=== PATIENT | female | born 1980 ===

== ENCOUNTER 2021-08-28 15:13 | Emergency (ER) | payer OTHER, SELFPAY ==
--- NOTE | 2021-08-28 | ECG_ITS ---
Test Reason : NEAR SYNCOPE Blood Pressure : / mmHG Vent. Rate : 145 BPM Atrial Rate : 145 BPM P-R Int : 140 ms QRS Dur : 080 ms QT Int : 254 ms P-R-T Axes : 030 -17 103 degrees QTc Int : 394 ms Sinus tachycardia Left ventricular hypertrophy with repolarization abnormality ( R in aVL , Galt product ) Abnormal ECG When compared with ECG of 01-MAR-2018 09:25, Vent. rate has increased BY [address] now depressed in Lateral leads T wave inversion now evident in Lateral leads Referred By: Generic ED Physician Electronically Signed By:Jules Lawrence
--- NOTE | ~2021-08-28 | CT_ITS ---
EXAMINATION: CT HEAD WITHOUT CONTRAST CLINICAL INFORMATION: Trauma. COMPARISON: None. TECHNIQUE: Contiguous axial imaging was performed from the skull base to vertex without intravenous administration of contrast. Coronal and sagittal reformatted images are performed at the CT scanner. [This CT examination was performed using dose optimization techniques as appropriate, variously including the following: *Automated exposure control *Adjustment of mA and/or kV according to patient size (this includes techniques or standardized protocols for targeted exams where dose is matched to indication/reason for exam; i.e. extremities or head) *Use of iterative reconstruction technique] DLP: 862 mGy-cm. FINDINGS: There is no evidence of acute intracranial hemorrhage or territorial infarction. No abnormal mass-effect or midline shift is seen. [place] to white matter differentiation is well preserved. No extra-axial fluid collections are identified. The ventricles are normal in size. There is no abnormal attenuation within the brain parenchyma. There is no osseous abnormality. The mastoid air cells and visualized portions of the paranasal sinuses are well-aerated. CT/CT head/brain wo con IMPRESSION: No acute intracranial pathology.
--- NOTE | ~2021-08-28 | XR_ITS ---
EXAMINATION: XR CHEST CLINICAL INFORMATION: Chest pain. COMPARISON: None TECHNIQUE: Portable AP upright view of the chest was obtained. FINDINGS: No significant abnormality is noted involving the heart, lungs, mediastinum, bony thorax or soft tissues. XR/XR chest 1V IMPRESSION: Unremarkable examination.
--- NOTE | 2021-08-28 15:33 | ECG_ITS ---
Test Reason : REPEAT Blood Pressure : / mmHG Vent. Rate : 112 BPM Atrial Rate : 112 BPM P-R Int : 142 ms QRS Dur : 086 ms QT Int : 338 ms P-R-T Axes : 041 -16 029 degrees QTc Int : 461 ms Sinus tachycardia Moderate voltage criteria for LVH, may be normal variant ( R in aVL , Jung product ) Borderline ECG When compared with ECG of 28-AUG-2021 15:32, T wave inversion no longer evident in Lateral leads Referred By: Cheng Crespo Electronically Signed By:Jules Lawrence
[2021-08-28 15:45] VITALS: BP 162/92; PULSE 150
[2021-08-28] MEDS: Metoprolol Tartrate 5 MG/5 ML VIAL IVPUSH (15:45)
--- NOTE | 2021-08-28 15:47 | ED.HEATRA ---
HPI - Head Injury General Chief complaint: Chest Pain Stated complaint: FAST HEART RATE Time Seen by Provider: 08/28/21 15:33 Source: patient and EMS Mode of arrival: EMS Limitations: no limitations History of Present Illness HPI Narrative: This is a 40 years old the female who presented by ambulance after a fall in the shower she states that she slipped hit head on the floor she arrived this was tachycardic with a heart rate of 145 , denies any shortness of breath, denies any fever MD Complaint: head injury Onset (ago): hour(s) (1) Place: home Loss of Consciousness: no Location of injury: frontal Severity: moderate Radiation: none Related Data Allergies Allergy/AdvReac Type Severity Reaction Status Date / Time No Known Allergies Allergy Unverified 05/18/20 14:59 Review of Systems Constitutional: Constitutional: Reports no additional constitutional complaints Eyes: Eyes: Reports no additional eye complaints ENT: Reports system reviewed and no additional complaints, except as documented Cardiovascular: Cardiovascular: Reports no additional cardiovascular complaints Musculoskeletal: Musculoskeletal: Reports no additional musculoskeletal complaints Neurologic: Reports system reviewed and no additional complaints, except as documented [facility] Past Medical History [facility] Narrative: Opioid Abuse Disorder Social History Social History Advance Directives: No Advance Directives Information Provided: Yes Physical Exam Vital Signs: Vital Signs: Last Vital Signs Pulse 94 08/28/21 19:45 Resp 18 08/28/21 19:43 BP 146/86 H 08/28/21 19:43 Pulse Ox 95 08/28/21 19:43 Oxygen Flow Rate 3 08/28/21 16:01 BMI result Body Mass Index 27.4 Const: General: cooperative, comfortable, no acute distress and intoxicated appearing Orientation/consciousness: oriented to person, oriented to place, oriented to time and patient oriented x3 HENMT: Head: Yes normal to inspection Ears: hearing grossly normal bilaterally Neuro: General: oriented to person, oriented to place, oriented to time and patient oriented x3 Course Reevaluation(s) Reevaluation #1: At this time the patient is feeling much better she wants to go home , initial tachycardia is completely resolved, labs imaging reviewed she has elevated LFT, I discussed this with the patient she tells me that she is alcoholic she is trying to cut back on the drinking , she is no ready to go to detox today as well ,she would like to be discharged home,at the time of discharge heart rate 94 MDM - Head Injury Lab Data Result diagrams: 08/28/21 15:51 08/28/21 15:51 Labs: Lab Results 08/28/21 08/28/21 08/28/21 Range/Units 15:38 15:51 15:51 WBC 10.0 (4.8-10.8) X10*3/uL RBC 4.53 (4.20-5.50) X10*6/uL Hgb 14.7 (12.0-16.0) g/dl Hct 43.6 (37.0-47.0) % MCV 96.2 (80.0-98.0) fL MCH 32.5 (27.0-33.0) pg MCHC 33.7 (31.0-35.0) g/dl RDW 13.2 (11.0-16.0) % Plt Count 209 (160-400) X10*3/uL MPV 9.3 L (9.4-12.3) fL Immature Gran % (Auto) 0.3 (0.0-0.4) % Neut % (Auto) 73.2 H (45-73) % Lymph % (Auto) 18.9 L (20-40) % [place] % (Auto) 6.7 (2-11) % Eos % (Auto) 0.6 (0-4) % Baso % (Auto) 0.3 (0-2) % Lymph # (Auto) 1.9 (1.2-4.9) X10*3/uL [place] # (Auto) 0.7 (0.1-1.2) X10*3/uL Eos # (Auto) 0.1 (0.0-0.4) X10*3/uL Baso # (Auto) 0.0 (0.0-0.2) X10*3/uL Abs Immat Gran (auto) 0.03 (0.00-0.03) X10*3/uL Absolute Neuts (auto) 7.3 (2.0-8.3) x10*3/uL Absolute Nucleated RBC 0.000 (0.0-0.012) X10*3/uL Nucleated RBC % (auto) 0.0 (0.0-0.2) /100WBC PT 11.3 (9.9-13.0) SEC INR 1.0 (0.9-1.1) Sodium (135-145) mmol/L Potassium (3.3-5.1) mmol/L Chloride (96-108) mmol/L Carbon Dioxide (22-29) mmol/L Anion Gap (12-20) BUN (9-16) mg/dL Creatinine (0.5-1.4) mg/dL Estim Creat Clear Calc Estimated GFR POC Glucose 126 H (60-115) mg/dL Random Glucose (60-115) mg/dL Calcium (8.4-10.2) mg/dL Total Bilirubin (0.0-1.0) mg/dL AST (5-31) U/L ALT (0-31) U/L Alkaline Phosphatase (39-117) U/L Troponin I High Sens (<3.5-17.0) ng/L Total Protein (6.5-8.0) g/dL Albumin (3.5-5.0) g/dL 08/28/21 08/28/21 Range/Units 15:51 15:51 WBC (4.8-10.8) X10*3/uL RBC (4.20-5.50) X10*6/uL Hgb (12.0-16.0) g/dl Hct (37.0-47.0) % MCV (80.0-98.0) fL MCH (27.0-33.0) pg MCHC (31.0-35.0) g/dl RDW (11.0-16.0) % Plt Count (160-400) X10*3/uL MPV (9.4-12.3) fL Immature Gran % (Auto) (0.0-0.4) % Neut % (Auto) (45-73) % Lymph % (Auto) (20-40) % [place] % (Auto) (2-11) % Eos % (Auto) (0-4) % Baso % (Auto) (0-2) % Lymph # (Auto) (1.2-4.9) X10*3/uL [place] # (Auto) (0.1-1.2) X10*3/uL Eos # (Auto) (0.0-0.4) X10*3/uL Baso # (Auto) (0.0-0.2) X10*3/uL Abs Immat Gran (auto) (0.00-0.03) X10*3/uL Absolute Neuts (auto) (2.0-8.3) x10*3/uL Absolute Nucleated RBC (0.0-0.012) X10*3/uL Nucleated RBC % (auto) (0.0-0.2) /100WBC PT (9.9-13.0) SEC INR (0.9-1.1) Sodium 144 (135-145) mmol/L Potassium 3.6 (3.3-5.1) mmol/L Chloride 106 (96-108) mmol/L Carbon Dioxide 26 (22-29) mmol/L Anion Gap 16 (12-20) BUN 15 (9-16) mg/dL Creatinine 1.19 (0.5-1.4) mg/dL Estim Creat Clear Calc 65.2 Estimated GFR 50 POC Glucose (60-115) mg/dL Random Glucose 115 (60-115) mg/dL Calcium 9.4 (8.4-10.2) mg/dL Total Bilirubin 0.9 (0.0-1.0) mg/dL AST 371 H (5-31) U/L ALT 142 H (0-31) U/L Alkaline Phosphatase 176 H (39-117) U/L Troponin I High Sens 4.6 (<3.5-17.0) ng/L Total Protein 8.2 H (6.5-8.0) g/dL Albumin 4.2 (3.5-5.0) g/dL Imaging Data Chest x-ray: Radiologist's impression: [address] [address] XRay Report Signed Patient: Allison Wakefield MR#: [id number] : 1980 Acct:[id number] Age/Sex: 40 / F ADM Date: 08/28/21 Loc: .ED Attending Dr: Ordering Physician: Cheng Crespo MD Date of Service: 08/28/21 Procedure(s): XR chest 1V Accession Number(s): [id number] cc: Cheng Crespo MD~ EXAMINATION: XR CHEST CLINICAL INFORMATION: Chest pain. COMPARISON: None TECHNIQUE: Portable AP upright view of the chest was obtained. FINDINGS: No significant abnormality is noted involving the heart, lungs, mediastinum, bony thorax or soft tissues. XR/XR chest 1V IMPRESSION: Unremarkable examination. ? CT scan - head: Radiologist's impression: base to vertex without intravenous administration of contrast. Coronal and sagittal reformatted images are performed at the CT scanner. [This CT examination was performed using dose optimization techniques as appropriate, variously including the following: *Automated exposure control *Adjustment of mA and/or kV according to patient size (this includes techniques or standardized protocols for targeted exams where dose is matched to indication/reason for exam; i.e. extremities or head) *Use of iterative reconstruction technique] DLP: 862 mGy-cm. FINDINGS: There is no evidence of acute intracranial hemorrhage or territorial infarction. No abnormal mass-effect or midline shift is seen. [place] to white matter differentiation is well preserved. No extra-axial fluid collections are identified. The ventricles are normal in size. There is no abnormal attenuation within the brain parenchyma. There is no osseous abnormality. The mastoid air cells and visualized portions of the paranasal sinuses are well-aerated. ? ECG Data Pacemaker model: Sinus tach rate 145 no ischemic changes Discharge Plan Discharge Clinical Impression: Head injury, Elevated LFTs, Alcohol abuse Patient Disposition: Home, Self-Care Instructions: Head Injury (ED), Alcohol Use Disorder (ED) Additional Instructions: your Liver test are elevated return if worse, please consider detox
[2021-08-28 15:58] LABS: Glucose, Whole Blood 126 mg/dL (60-115)
[2021-08-28 16:01] VITALS: BP 162/92; BP 170/109; PULSE 140; PULSE 170; RESP 18; O2SAT 96; BMI 27.4
[2021-08-28 16:06] LABS: MANUAL DIFF FLAG NO
[2021-08-28] MEDS: 0.9 % Sodium Chloride 1,000 ML 999 ML IVCONT (16:10)
[2021-08-28 16:16] LABS: Basophils Percent Auto 0.3 % (0-2); Eosinophils Absolute Auto 0.1 X10*3/uL (0.0-0.4); Eosinophils Percent Auto 0.6 % (0-4); Hematocrit 43.6 % (37.0-47.0); Hemoglobin 14.7 g/dl (12.0-16.0); Imm Gran Abs Auto 0.03 X10*3/uL (0.00-0.03); Imm Gran Pct Auto 0.3 % (0.0-0.4); Lymphocytes Absolute Auto 1.9 X10*3/uL (1.2-4.9); Lymphocytes Percent Auto 18.9 % (20-40); Mean Corpuscular HGB Conc 33.7 g/dl (31.0-35.0); Mean Corpuscular Hemoglobin 32.5 pg (27.0-33.0); Mean Corpuscular Volume 96.2 fL (80.0-98.0); Mean Platelet Volume 9.3 fL (9.4-12.3); Monocytes Absolute Auto 0.7 X10*3/uL (0.1-1.2); Monocytes Percent Auto 6.7 % (2-11); Neutrophils Absolute Auto 7.3 x10*3/uL (2.0-8.3); Neutrophils Percent Auto 73.2 % (45-73); Platelet Count 209 X10*3/uL (160-400); Prothrombin Time 11.3 SEC (9.9-13.0); Red Blood Count 4.53 X10*6/uL (4.20-5.50); Red Cell Distribution Width 13.2 % (11.0-16.0)
[2021-08-28 16:33] LABS: Troponin-I High Sensitivity 4.6 ng/L (<3.5-17.0)
[2021-08-28 16:38] LABS: Alanine Aminotransferase 142 U/L (0-31); Albumin Level 4.2 g/dL (3.5-5.0); Alkaline Phosphatase 176 U/L (39-117); Anion Gap 16 (12-20); Aspartate Amino Transferase 371 U/L (5-31); Bilirubin Total 0.9 mg/dL (0.0-1.0); Blood Urea Nitrogen 15 mg/dL (9-16); Calcium 9.4 mg/dL (8.4-10.2); Carbon Dioxide 26 mmol/L (22-29); Chloride 106 mmol/L (96-108); Creatinine Clr Calc Pharmacy 65.2; Estimated Glomerular Filt Rate 50; Glucose Random 115 mg/dL (60-115); Potassium 3.6 mmol/L (3.3-5.1); Sodium 144 mmol/L (135-145); Total Protein 8.2 g/dL (6.5-8.0)
[2021-08-28] MEDS: LORazepam 1 MG TABLET PO (19:05)
[2021-08-28 19:43] VITALS: BP 146/86; PULSE 116; RESP 18; O2SAT 95
[2021-08-28 19:45] VITALS: PULSE 94
== END 2021-08-28 20:11 | disposition home or self-care (01) ==
PROVIDERS: Emergency Provider Emergency Medicine; PCP Internal Medicine
DX: S09.90XA Unspecified injury of head, initial encounter (principal); R00.0 Tachycardia, unspecified; R79.89 Other specified abnormal findings of blood chemistry; F10.10 Alcohol abuse, uncomplicated; Z95.0 Presence of cardiac pacemaker; W18.2XXA Fall in (into) shower or empty bathtub, initial encounter; Y93.E1 Activity, personal bathing and showering; Y92.002 Bathroom of unspecified non-institutional (private) residence as the place of occurrence of the external cause; Y99.9 Unspecified external cause status
CPT/HCPCS: 36415; 70450; 71045; 80053; 82947; 84484; 85025; 85610; 93005; 96361; 96374; 99284

== ENCOUNTER 2021-09-08 16:12 | Inpatient (IN) | payer OTHER, SELFPAY ==
--- NOTE | ~2021-09-08 | XR_ITS ---
EXAMINATION: XR CHEST CLINICAL INFORMATION: Chest pain COMPARISON: Frontal view 08/28/21 TECHNIQUE: Upright frontal portable view of the chest was obtained. FINDINGS: Devices overlie the patient. The mediastinum, orestes, vasculature, lungs and visualized pleural margins are within normal limits. Suspect nipple jewelry on the left. Indistinctness adjacent to the cardiac apex likely a prominent fat pad. Limited spine detail XR/XR chest 1V IMPRESSION: No pneumonia or edema. No suspicious interval change.
--- NOTE | ~2021-09-08 | US_ITS ---
EXAMINATION: US ABDOMEN LIMITED CLINICAL INFORMATION: Abdominal pain with vomiting and elevated LFTs. COMPARISON: None TECHNIQUE: Real-time imaging of the right upper quadrant abdominal viscera. FINDINGS: PANCREAS: Normal. LIVER: Liver is enlarged measuring 21.3 cm in greatest length and demonstrates increased echogenicity suggesting hepatic steatosis. The liver contour is normal. No focal hepatic lesion. There is no intrahepatic biliary duct dilatation seen. GALLBLADDER: Normal. The gallbladder is physiologically distended without evidence of stones, sludge, polyps, wall thickening or pericholecystic fluid. COMMON BILE DUCT: Normal in caliber measuring 0.4 cm in diameter. RIGHT KIDNEY: Normal. No hydronephrosis. No renal calculi or focal parenchymal lesions. The kidney measures 10.2 cm in maximum dimension. FREE FLUID: None. US/US abdomen limited IMPRESSION: Enlarged fatty liver
--- NOTE | ~2021-09-08 | CT_ITS ---
EXAMINATION: CT HEAD WITHOUT CONTRAST CLINICAL INFORMATION: Trauma COMPARISON: 08.28.2021 TECHNIQUE: Contiguous axial imaging was performed from the skull base to vertex without intravenous administration of contrast. This CT examination was performed using dose optimization techniques as appropriate, variously including the following: *Automated exposure control *Adjustment of mA and/or kV according to patient size (this includes techniques or standardized protocols for targeted exams where dose is matched to indication/reason for exam; i.e. extremities or head) *Use of iterative reconstruction technique DLP: 816 mGy-cm FINDINGS: There is no evidence of acute intracranial hemorrhage or territorial infarction. No abnormal mass effect or midline shift is seen. Del Angel to white matter differentiation is well preserved. No extra-axial fluid collections are identified. The ventricles are normal in size. There is no abnormal attenuation within the brain parenchyma. The osseous structures and soft tissues are normal. The mastoid air cells and visualized portions of the paranasal sinuses are well aerated. CT/CT head/brain wo con IMPRESSION: No acute intracranial pathology.
[2021-09-08 16:19] VITALS: BP 179/98; PULSE 117; RESP 18; TEMP 36.7; O2SAT 98; BMI 28.1
[2021-09-08 17:01] LABS: COVID-19 Test Negative (Negative)
--- NOTE | 2021-09-08 20:50 | ECG_ITS ---
Test Reason : MED CLEARANCE Blood Pressure : / mmHG Vent. Rate : 088 BPM Atrial Rate : 088 BPM P-R Int : 134 ms QRS Dur : 082 ms QT Int : 392 ms P-R-T Axes : 066 005 023 degrees QTc Int : 474 ms Normal sinus rhythm Normal ECG When compared with ECG of 28-AUG-2021 16:07, No significant change was found Referred By: Tyrone High Electronically Signed By:XIMENA MEZA
--- NOTE | 2021-09-08 20:54 | ED_ITS ---
HPI - General Adult General Chief complaint: General Medical Stated complaint: Sob,vomiting and chest pain Time Seen by Provider: 09/08/21 16:34 Source: patient Mode of arrival: ambulatory Limitations: no limitations History of Present Illness HPI narrative: 40-year-old female history of alcohol use on a daily basis, patient presented nausea and vomiting for 3 days, patient has been bingeing on drinking alcohol for the past week, then started to have nausea and vomiting, patient did not drink since yesterday, feeling very shaky and sustaining tremors, patient also been having multiple falls, fell at home 3 days ago tripped on her cat striking her head on kitchen table. Otherwise patient declined any abdominal pain only when she is vomiting. Related Data Home Medications Medication Instructions Recorded Confirmed No Known Home Meds 09/08/21 09/08/21 Allergies Allergy/AdvReac Type Severity Reaction Status Date / Time No Known Allergies Allergy Unverified 05/18/20 14:59 Review of Systems Review of Systems: All other systems are reviewed and are negative Constitutional: Reports as per HPI and Reports no additional constitutional complaints Eyes: Reports as per HPI and Reports no additional eye complaints Reports system reviewed and no additional complaints, except as documented Cardiovascular: Reports as per HPI and Reports no additional cardiovascular complaints Respiratory: Reports as per HPI and Reports no additional respiratory complaints Gastrointestinal: Reports as per HPI and Reports no additional gastrointestinal complaints Genitourinary: Reports no additional female genitourinary complaints Musculoskeletal: Reports no additional musculoskeletal complaints Skin/Breast: Reports system reviewed and no additional complaints, except as docu Psychiatric: Reports no additional psychiatric complaints Endocrine: Reports no additional endocrine complaints Hematologic/Lymphatic: Reports no additional hematologic/lymphatic complaints Allergic/Immunologic: Reports no additional allergic/immunologic complaints Reports system reviewed and no additional complaints, except as documented and Reports Abnormal speech present [facility] Social History Social History Alcohol intake: current Alcohol intake frequency: 3 or more drinks per day Alcohol type: hard liquor Patient Tobacco Use Status: Current everyday Tobacco user Smoked in Last 30 Days: Yes Use of substances other than those prescribed or required for medical reasons: No Advance Directives: No Advance Directives Information Provided: No Patient : No Physical Exam Vital Signs: Vital Signs: Last Vital Signs Temp 98.8 F 09/08/21 22:14 Pulse 95 09/08/21 22:14 Resp 15 01/08/22 22:14 BP 163/83 H 09/08/21 22:14 Pulse Ox 95 09/08/21 22:14 BMI result Body Mass Index 28.1 Vital signs have been reviewed as appeared to be correct. Blood pressure is elevated. Heart rate elevated. Respiration rate normal. Temperature normal. Oxygen saturation normal. Appearance: Alert. Anxious, diffuse involuntary tremor Head: Normal external exam. Normocephalic. Atraumatic. No Silva signs noted. No raccoon eyes noted, with tongue fasciculation. Eyes: PERRLA. EOMI. Conjunctiva and sclera normal. Eyelids normal. ENT: TM's Normal. Pharynx normal. Uvula midline. Moist mucous membranes. No trismus noted. No drooling noted. No muffled voice noted. Neck: Normal inspection. Neck supple. FROM. No adenopathy. Thyroid Normal. No meningeal signs. No neck mass noted. CVS: Normal heart rate and rhythm. Heart sound normal. No murmurs noted. Pulses normal throughout. Respiratory: No respiratory distress. Painless inspiration. Breath sounds normal. No wheezes/rales/rhonchi noted. Chest nontender. No accessory muscle usage noted or decreased air movement noted. Abdomen: Soft and nontender. Bowel sounds normal in all 4 quadrants. No distention noted. No organomegaly noted. No visible injury noted. Back: No CVA tenderness. Full range of motion noted. Skin: Skin warm and dry. Normal skin color. Normal skin turgor. No rashes/lesions/lacerations noted. Extremities: No lower extremity edema. Extremities exhibit normal range of motion. Extremities nontender. Neuro: Oriented X 3. Cranial nerve exam: II-XII are grossly intact No motor deficit. No sensory deficit. Reflexes normal. Course Course Course Narrative: Assessment and plan. 1. 40-year-old female alcohol abuser, patient did not drink alcohol for the past 3 days due to nausea and vomiting, presented with severe withdrawal symptoms patient required phenobarb/Ativan to control the symptoms. 2. Multiple fall with head injury head a negative head CT for intracranial bleed. 3. Patient with chronic elevation of LFTs likely secondary to chronic alcohol abuse ultrasound revealing fatty liver. Medical Decision Making Lab Data Lab results reviewed: Yes I reviewed the patient's lab results. Result diagrams: 09/08/21 21:15 09/08/21 21:15 Labs: Lab Results 09/08/21 09/08/21 09/08/21 Range/Units 16:24 21:15 21:15 WBC 7.1 (4.8-10.8) X10*3/uL RBC 4.36 (4.20-5.50) X10*6/uL Hgb 14.0 (12.0-16.0) g/dl Hct 41.0 (37.0-47.0) % MCV 94.0 (80.0-98.0) fL MCH 32.1 (27.0-33.0) pg MCHC 34.1 (31.0-35.0) g/dl RDW 13.0 (11.0-16.0) % Plt Count 144 L D (160-400) X10*3/uL MPV 9.5 (9.4-12.3) fL Immature Gran % (Auto) 0.4 (0.0-0.4) % Neut % (Auto) 75.6 H (45-73) % Lymph % (Auto) 14.8 L (20-40) % [place] % (Auto) 9.1 (2-11) % Eos % (Auto) 0.0 (0-4) % Baso % (Auto) 0.1 (0-2) % Lymph # (Auto) 1.1 L (1.2-4.9) X10*3/uL [place] # (Auto) 0.7 (0.1-1.2) X10*3/uL Eos # (Auto) 0.0 (0.0-0.4) X10*3/uL Baso # (Auto) 0.0 (0.0-0.2) X10*3/uL Abs Immat Gran (auto) 0.03 (0.00-0.03) X10*3/uL Absolute Neuts (auto) 5.4 (2.0-8.3) x10*3/uL Absolute Nucleated RBC 0.000 (0.0-0.012) X10*3/uL Nucleated RBC % (auto) 0.0 (0.0-0.2) /100WBC Sodium 140 (135-145) mmol/L Potassium 3.6 (3.3-5.1) mmol/L Chloride 98 (96-108) mmol/L Carbon Dioxide 27 (22-29) mmol/L Anion Gap 19 (12-20) BUN 7 L D (9-16) mg/dL Creatinine 1.00 (0.5-1.4) mg/dL Estim Creat Clear Calc 81.3 Estimated GFR > 60 Random Glucose 69 (60-115) mg/dL Calcium 9.8 (8.4-10.2) mg/dL Magnesium 1.8 (1.6-2.6) mg/dL Total Bilirubin 3.4 H (0.0-1.0) mg/dL Direct Bilirubin 2.6 H (0.0-0.5) mg/dL AST 478 H (5-31) U/L ALT 181 H (0-31) U/L Alkaline Phosphatase 205 H (39-117) U/L Troponin I High Sens (<3.5-17.0) ng/L B-Natriuretic Peptide (<100) pg/mL Total Protein 8.5 H (6.5-8.0) g/dL Albumin 4.5 (3.5-5.0) g/dL Lipase 75 (8-78) U/L Beta HCG, Quant < 2 mIU/mL Ethyl Alcohol mg/dL COVID-19 ([facility]) Negative (Negative) COVID-19 Clin Com See Note 09/08/21 09/08/21 Range/Units 21:15 21:15 WBC (4.8-10.8) X10*3/uL RBC (4.20-5.50) X10*6/uL Hgb (12.0-16.0) g/dl Hct (37.0-47.0) % MCV (80.0-98.0) fL MCH (27.0-33.0) pg MCHC (31.0-35.0) g/dl RDW (11.0-16.0) % Plt Count (160-400) X10*3/uL MPV (9.4-12.3) fL Immature Gran % (Auto) (0.0-0.4) % Neut % (Auto) (45-73) % Lymph % (Auto) (20-40) % [place] % (Auto) (2-11) % Eos % (Auto) (0-4) % Baso % (Auto) (0-2) % Lymph # (Auto) (1.2-4.9) X10*3/uL [place] # (Auto) (0.1-1.2) X10*3/uL Eos # (Auto) (0.0-0.4) X10*3/uL Baso # (Auto) (0.0-0.2) X10*3/uL Abs Immat Gran (auto) (0.00-0.03) X10*3/uL Absolute Neuts (auto) (2.0-8.3) x10*3/uL Absolute Nucleated RBC (0.0-0.012) X10*3/uL Nucleated RBC % (auto) (0.0-0.2) /100WBC Sodium (135-145) mmol/L Potassium (3.3-5.1) mmol/L Chloride (96-108) mmol/L Carbon Dioxide (22-29) mmol/L Anion Gap (12-20) BUN (9-16) mg/dL Creatinine (0.5-1.4) mg/dL Estim Creat Clear Calc Estimated GFR Random Glucose (60-115) mg/dL Calcium (8.4-10.2) mg/dL Magnesium (1.6-2.6) mg/dL Total Bilirubin (0.0-1.0) mg/dL Direct Bilirubin (0.0-0.5) mg/dL AST (5-31) U/L ALT (0-31) U/L Alkaline Phosphatase (39-117) U/L Troponin I High Sens 8.5 D (<3.5-17.0) ng/L B-Natriuretic Peptide 42 (<100) pg/mL Total Protein (6.5-8.0) g/dL Albumin (3.5-5.0) g/dL Lipase (8-78) U/L Beta HCG, Quant mIU/mL Ethyl Alcohol 28 mg/dL COVID-19 ([facility]) (Negative) COVID-19 Clin Com Imaging Data Head CT: Attestation: I personally reviewed and interpreted this imaging study as follows: Radiologist's impression: No acute intracranial pathology. Chest x-ray: Attestation: I personally reviewed and interpreted this imaging study as follows: Radiologist's impression: No pneumonia or edema. No suspicious interval change. Discharge Plan Discharge Clinical Impression: Closed head injury, Alcohol withdrawal Patient Disposition: Admitted As Inpatient Prescriptions: No Action No Known Home Meds RF: 0
[2021-09-08 20:56] VITALS: BP 171/97; PULSE 108; RESP 16; O2SAT 99
[2021-09-08 21:19] LABS: MANUAL DIFF FLAG NO
[2021-09-08 21:24] LABS: Basophils Percent Auto 0.1 % (0-2); Imm Gran Abs Auto 0.03 X10*3/uL (0.00-0.03); Imm Gran Pct Auto 0.4 % (0.0-0.4); Lymphocytes Absolute Auto 1.1 X10*3/uL (1.2-4.9); Lymphocytes Percent Auto 14.8 % (20-40); Mean Corpuscular HGB Conc 34.1 g/dl (31.0-35.0); Mean Corpuscular Hemoglobin 32.1 pg (27.0-33.0); Mean Platelet Volume 9.5 fL (9.4-12.3); Monocytes Absolute Auto 0.7 X10*3/uL (0.1-1.2); Monocytes Percent Auto 9.1 % (2-11); Neutrophils Absolute Auto 5.4 x10*3/uL (2.0-8.3); Neutrophils Percent Auto 75.6 % (45-73); Platelet Count 144 X10*3/uL (160-400); Red Blood Count 4.36 X10*6/uL (4.20-5.50); White Blood Count 7.1 X10*3/uL (4.8-10.8)
[2021-09-08 21:34] LABS: Ethanol 28 mg/dL
[2021-09-08] MEDS: ondansetron HCL 4 MG/2 ML VIAL IVPUSH (21:34)
[2021-09-08] MEDS: 0.9 % Sodium Chloride 1,000 ML 999 ML IV (21:34)
[2021-09-08] MEDS: PHENobarbitaL sodium 130 MG/ML VIAL 247 MG IM (21:35)
[2021-09-08] MEDS: Famotidine/PF 20 MG/2 ML VIAL IVPUSH (21:35)
[2021-09-08] MEDS: LORazepam 2 MG/ML VIAL 1 MG IVPUSH (21:35)
[2021-09-08 21:43] LABS: B Type Natriuretic Peptide 42 pg/mL (<100); Troponin-I High Sensitivity 8.5 ng/L (<3.5-17.0)
[2021-09-08 21:44] LABS: Alanine Aminotransferase 181 U/L (0-31); Albumin Level 4.5 g/dL (3.5-5.0); Alkaline Phosphatase 205 U/L (39-117); Anion Gap 19 (12-20); Aspartate Amino Transferase 478 U/L (5-31); Bilirubin Direct 2.6 mg/dL (0.0-0.5); Bilirubin Total 3.4 mg/dL (0.0-1.0); Blood Urea Nitrogen 7 mg/dL (9-16); Calcium 9.8 mg/dL (8.4-10.2); Carbon Dioxide 27 mmol/L (22-29); Chloride 98 mmol/L (96-108); Creatinine Clr Calc Pharmacy 81.3; Estimated Glomerular Filt Rate > 60; Glucose Random 69 mg/dL (60-115); Lipase 75 U/L (8-78); Magnesium 1.8 mg/dL (1.6-2.6); Potassium 3.6 mmol/L (3.3-5.1); Sodium 140 mmol/L (135-145); Total Protein 8.5 g/dL (6.5-8.0)
[2021-09-08 22:14] VITALS: BP 163/83; PULSE 95; RESP 15; TEMP 37.1; O2SAT 95
[2021-09-08 22:53] LABS: HCG Quantitative < 2 mIU/mL
--- NOTE | 2021-09-08 23:59 | P.HPHOSP_ITS ---
History of Present Illness Date of Service: 09/08/21 Chief Complaint: nausea/vomiting 40-year-old female with a past medical history of alcohol abuse, opiate abuse on methadone presented to the hospital with a chief complaint of nausea vomiting and abdominal discomfort for the past few days. Patient reports that over the past 2 days she has been having nausea and vomiting associated abdominal discomfort; denies any blood in the vomitus. Denies any diarrhea. Patient reports that she has decreased oral intake. Mentions she drinks alcohol regularly; last drink was yesterday; denies any seizure-like activity. Denies any chest pain palpitations lightheadedness or dizziness. Patient reports that today she felt unsteady and fell on the ground, hit her head; denies any blurry visions, neck pain back pain or hip pain. Denies any numbness tingling or focal weakness. Review of all other systems is negative except mentioned above ER course: Per ER team patient CT head showed no acute findings; patient noted to be dry and of withdrawing from alcohol; started on phenobarb protocol. Admitted to the hospital for further management. PMFSH Pertinent family history: Reviewed Social History Alcohol intake: current Alcohol intake frequency: 3 or more drinks per day Alcohol type: hard liquor Patient Tobacco Use Status: Current everyday Tobacco user Smoked in Last 30 Days: Yes Use of substances other than those prescribed or required for medical reasons: No Advance Directives: No Advance Directives Information Provided: No Patient : No Meds Allergies Allergy/AdvReac Type Severity Reaction Status Date / Time No Known Allergies Allergy Unverified 05/18/20 14:59 Active Medications: Current Medications Medication (No Benzodiazepines) 1 each MISCELLANE DAILY EARL Phenobarbital (Phenobarbital 15 Mg Tablet) 45 mg PO BID EARL; Protocol Stop: 09/10/21 21:01 Phenobarbital (Phenobarbital 30 Mg Tablet) 30 mg PO BID EARL; Protocol Stop: 09/12/21 21:01 Phenobarbital (Phenobarbital 15 Mg Tablet) 15 mg PO DAILY EARL; Protocol Stop: 09/14/21 09:01 Phenobarbital Sodium (Phenobarbital Sodium 130 Mg/Ml Vial) 183.3 mg IM Q3H EARL; Protocol Stop: 09/09/21 04:01 Home Medications Medication Instructions Recorded Confirmed Last Taken Type No Known Home Meds 09/08/21 09/08/21 Unknown History Physical Exam Vital Signs and Narrative: Vital Signs: Last Vital Signs Temp 98.8 F 09/08/21 22:14 Pulse 95 09/08/21 22:14 Resp 15 09/08/21 22:14 BP 163/83 H 09/08/21 22:14 Pulse Ox 95 09/08/21 22:14 BMI result Body Mass Index 28.1 Gen: Appears be in no acute distress HEENT: NCAT, dry mucosa. Pulmonary: Vesicular breath sounds, fair air entry CVS: Normal S1-S2 Abdomen: BS+, Soft, Nontender Extremities: Warm well perfused Neuro: Alert and awake. Results Labs CBC and Chem 7: 09/08/21 21:15 09/08/21 21:15 Labs: Laboratory Results - last 24 hr 09/08/21 09/08/21 09/08/21 16:24 21:15 21:15 MCV 94.0 MCH 32.1 MCHC 34.1 RDW 13.0 Plt Count 144 L D MPV 9.5 Immature Gran % (Auto) 0.4 Neut % (Auto) 75.6 H Lymph % (Auto) 14.8 L [place] % (Auto) 9.1 Eos % (Auto) 0.0 Baso % (Auto) 0.1 Lymph # (Auto) 1.1 L [place] # (Auto) 0.7 Eos # (Auto) 0.0 Baso # (Auto) 0.0 Abs Immat Gran (auto) 0.03 Absolute Neuts (auto) 5.4 Absolute Nucleated RBC 0.000 Nucleated RBC % (auto) 0.0 Anion Gap 19 Estim Creat Clear Calc 81.3 Estimated GFR > 60 Random Glucose 69 Calcium 9.8 Magnesium 1.8 Total Bilirubin 3.4 H Direct Bilirubin 2.6 H AST 478 H ALT 181 H Alkaline Phosphatase 205 H Troponin I High Sens B-Natriuretic Peptide Total Protein 8.5 H Albumin 4.5 Lipase 75 Beta HCG, Quant < 2 Ethyl Alcohol COVID-19 (LAURO) Negative COVID-19 Clin Com See Note 09/08/21 09/08/21 21:15 21:15 MCV MCH MCHC RDW Plt Count MPV Immature Gran % (Auto) Neut % (Auto) Lymph % (Auto) [place] % (Auto) Eos % (Auto) Baso % (Auto) Lymph # (Auto) [place] # (Auto) Eos # (Auto) Baso # (Auto) Abs Immat Gran (auto) Absolute Neuts (auto) Absolute Nucleated RBC Nucleated RBC % (auto) Anion Gap Estim Creat Clear Calc Estimated GFR Random Glucose Calcium Magnesium Total Bilirubin Direct Bilirubin AST ALT Alkaline Phosphatase Troponin I High Sens 8.5 D B-Natriuretic Peptide 42 Total Protein Albumin Lipase Beta HCG, Quant Ethyl Alcohol 28 COVID-19 (LAURO) COVID-19 Clin Com Imaging Radiologist's Impressions: Impressions Abdomen Ultrasound 09/08/21 10:47 IMPRESSION: Enlarged fatty liver Chest X-Ray 09/08/21 20:51 IMPRESSION: No pneumonia or edema. No suspicious interval change. Head CT 09/08/21 22:16 IMPRESSION: No acute intracranial pathology. Assessment and Plan (1) Alcohol withdrawal: Status: Acute (2) Transaminitis: Status: Acute 40-year-old female with a past medical history of alcohol abuse, opiate abuse on methadone presented to the hospital with a chief complaint of nausea vomiting and abdominal discomfort for the past few days/fall. Admitted for following. Nausea/vomiting: Likely alcoholic gastritis. IV Pepcid. Lipase within normal limits Advanced diet as tolerated. Alcohol abuse/withdrawal: Patient is started on phenobarb protocol. Continue thiamine folate and multivitamins. Transaminitis: Likely in setting of alcohol abuse. Monitor liver enzymes. Prior abdominal ultrasound showed fatty liver. UTI: c/w ceftriaxone. f/u Cultures Fall: Mechanical in nature. Denies any numbness tingling or focal weakness. Telemetry. Concern for LOC/concussion. Patient's memory is currently intact. DVT ppx: SCD Full code Quality Stroke Does the patient have a stroke diagnosis?: No VTE Prior VTE?: No VTE Risk Level:: Medical - low VTE Device Contraindication: N/A - Device Ordered VTE Drug Contraindication: Treatment Not Indicated
--- NOTE | 2021-09-09 | ECG_ITS ---
Test Reason : chest pain Blood Pressure : / mmHG Vent. Rate : 103 BPM Atrial Rate : 103 BPM P-R Int : 188 ms QRS Dur : 082 ms QT Int : 354 ms P-R-T Axes : 046 -05 020 degrees QTc Int : 463 ms Sinus tachycardia Otherwise normal ECG Referred By: Tyrone High Electronically Signed By:JESUS GONZALEZ MD
[2021-09-09] MEDS: Dextrose 5 % and 0.45 % NaCl 1,000 ML 50 ML IVCONT ×2 (00:54→23:04)
[2021-09-09] MEDS: PHENobarbitaL sodium 130 MG/ML VIAL 183.3 MG IM ×2 (00:54→04:28)
[2021-09-09 01:04] LABS: Appearance Urine CLOUDY; Color Urine DK YELLOW; Glucose Urine UA NEG (NEG); Leukocyte Esterase Urine 2+ (NEG); Nitrite Urine NEG (NEG); Specific Gravity - Urine >= 1.030 (1.005-1.025); UACC Culture Trigger YES; Urine Blood 3+ (NEG); Urine Ketones 40 MG/DL (NEG); Urine Protein 1+ MG/DL (NEG-TRACE)
[2021-09-09 01:11] LABS: Bacteria Urine 4+ /LPF; Squamous Epithelial Cell Urine 4+ /LPF; Trichomonas Urine NOTED; WBC Urine 30-49 /HPF (0-4)
[2021-09-09] MEDS: cefTRIAXone sodium 1 GM in 0.9 % Sodium Chloride 50 ML IV ×2 (03:33→21:56)
[2021-09-09 04:29] VITALS: BP 161/77; PULSE 87; RESP 18; O2SAT 95
--- NOTE | 2021-09-09 04:32 | PC.NURSE ---
pt ciwa is at 0. pt has very mild tremors, pt is calm and cooperative, skin pnk warm and dry, no visual or auditory hallucinations. pt repositions self and follows commands.
[2021-09-09 06:45] LABS: MANUAL DIFF FLAG NO
[2021-09-09 06:57] LABS: Basophils Percent Auto 0.5 % (0-2); Eosinophils Percent Auto 0.2 % (0-4); Hematocrit 35.6 % (37.0-47.0); Hemoglobin 11.9 g/dl (12.0-16.0); Imm Gran Abs Auto 0.03 X10*3/uL (0.00-0.03); Imm Gran Pct Auto 0.5 % (0.0-0.4); Lymphocytes Absolute Auto 1.3 X10*3/uL (1.2-4.9); Lymphocytes Percent Auto 21.5 % (20-40); Mean Corpuscular HGB Conc 33.4 g/dl (31.0-35.0); Mean Corpuscular Hemoglobin 31.9 pg (27.0-33.0); Mean Corpuscular Volume 95.4 fL (80.0-98.0); Mean Platelet Volume 9.8 fL (9.4-12.3); Monocytes Absolute Auto 0.5 X10*3/uL (0.1-1.2); Monocytes Percent Auto 7.9 % (2-11); Neutrophils Absolute Auto 4.3 x10*3/uL (2.0-8.3); Neutrophils Percent Auto 69.4 % (45-73); Platelet Count 118 X10*3/uL (160-400); Red Blood Count 3.73 X10*6/uL (4.20-5.50); White Blood Count 6.2 X10*3/uL (4.8-10.8)
[2021-09-09 07:22] LABS: Anion Gap 12 (12-20); Blood Urea Nitrogen 8 mg/dL (9-16); Calcium 8.8 mg/dL (8.4-10.2); Carbon Dioxide 29 mmol/L (22-29); Chloride 101 mmol/L (96-108); Creatinine Clr Calc Pharmacy 84.7; Estimated Glomerular Filt Rate > 60; Glucose Random 79 mg/dL (60-115); Magnesium 1.8 mg/dL (1.6-2.6); Potassium 3.6 mmol/L (3.3-5.1); Sodium 138 mmol/L (135-145)
[2021-09-09 08:34] VITALS: BP 158/79; PULSE 83; RESP 16; O2SAT 95
[2021-09-09] MEDS: Thiamine HCL 100 MG TABLET PO (08:56)
[2021-09-09] MEDS: PHENobarbitaL 15 MG TABLET 45 MG PO ×2 (08:56→20:10)
[2021-09-09] MEDS: Multivitamin TABLET 1 TAB PO (08:56)
[2021-09-09] MEDS: Famotidine/PF 20 MG/2 ML VIAL IVPUSH ×2 (08:56→20:10)
[2021-09-09] MEDS: Folic Acid 1 MG TABLET PO (08:56)
--- NOTE | 2021-09-09 09:47 | PC.NURSE ---
contacted JULIO Pedro for verification of pts methadone from [facility]
--- NOTE | 2021-09-09 11:04 | HO.PM.IMPN ---
Subjective Subjective Date of Service: 09/09/21 Interval History: Admitted due to nausea vomiting and alcohol withdrawal patient shaky, anxious asking for methadone, keep repeating the history that she was trying to detox at home was nauseous, not eating , tripped and fell at home and hit her head on kitchen table, denies headache, no dizziness, eating breakfast Review of Systems Review of Systems: Yes all other systems are reviewed and are negative Physical Exam Vital Signs: Vital Signs: Last Vital Signs Temp 98.8 F 09/08/21 22:14 Pulse 83 09/09/21 08:34 Resp 16 09/09/21 08:34 BP 158/79 H 09/09/21 08:34 Pulse Ox 95 09/09/21 08:34 BMI result Body Mass Index 28.1 General awake alert anxious,no acute distress. Oral mucosa moist Neck supple no JVD. CVS regular rate rhythm, Respiratory lungs clear to auscultation, no respiratory distress, no wheeze, no rhonchi. Gastrointestinal abdomen soft, nontender, bowel sounds audible, Extremities no edema. Neuro shaky tremulous, moving all 4 extremities speech clear Skin no rash Back no CVA tenderness Objective Data Active Medications Famotidine (Famotidine/Pf 20 Mg/2 Ml Vial) 20 mg IVPUSH BID [facility] Last Admin: 09/09/21 08:56 Dose: 20 mg Documented by: SWAPNIL Folic Acid (Folic Acid 1 Mg Tablet) 1 mg PO DAILY [facility] Stop: 09/12/21 08:59 Last Admin: 09/09/21 08:56 Dose: 1 mg Documented by: SWAPNIL Dextrose/Sodium Chloride (D51/2ns) 1,000 mls @ 50 mls/hr IVCONT .Q20H [facility] Last Admin: 09/09/21 00:54 Dose: 50 mls/hr Documented by: DIEGO Ceftriaxone Sodium 1 gm/ (Sodium Chloride) 50 mls @ 100 mls/hr IV Q24H [facility] Medication (No Benzodiazepines) 1 each MISCELLANE DAILY [facility] Melatonin (Melatonin 3 Mg Tablet) 6 mg PO BEDTIME PRN PRN Reason: Insomnia Multivitamins/Vitamin C (Multivitamin Tablet) 1 tab PO DAILY [facility] Stop: 09/12/21 08:59 Last Admin: 09/09/21 08:56 Dose: 1 tab Documented by: SWAPNIL Phenobarbital (Phenobarbital 15 Mg Tablet) 45 mg PO BID [facility]; Protocol Stop: 09/10/21 21:01 Last Admin: 09/09/21 08:56 Dose: 45 mg Documented by: SWAPNIL Phenobarbital (Phenobarbital 30 Mg Tablet) 30 mg PO BID [facility]; Protocol Stop: 09/12/21 21:01 Phenobarbital (Phenobarbital 15 Mg Tablet) 15 mg PO DAILY [facility]; Protocol Stop: 09/14/21 09:01 Senna (Sennosides 8.6 Mg Tablet) 17.2 mg PO BEDTIME PRN PRN Reason: Constipation Sodium Chloride (0.9 % Sodium Chloride Flush 3 Ml Syringe) 3 ml IVFLUSH QSHIFT [facility] Last Admin: 09/09/21 09:03 Dose: Not Given Documented by: SWAPNIL Non-Admin Reason: IV Running Thiamine HCl (Thiamine Hcl 100 Mg Tablet) 100 mg PO DAILY [facility] Stop: 09/12/21 08:59 Last Admin: 09/09/21 08:56 Dose: 100 mg Documented by: SWAPNIL Labs CBC & Chem 7: 09/09/21 06:28 09/09/21 06:28 Labs: Laboratory Results - last 24 hr 09/08/21 09/08/21 09/08/21 16:24 21:15 21:15 MCV 94.0 MCH 32.1 MCHC 34.1 RDW 13.0 Plt Count 144 L D MPV 9.5 Immature Gran % (Auto) 0.4 Neut % (Auto) 75.6 H Lymph % (Auto) 14.8 L [place] % (Auto) 9.1 Eos % (Auto) 0.0 Baso % (Auto) 0.1 Lymph # (Auto) 1.1 L [place] # (Auto) 0.7 Eos # (Auto) 0.0 Baso # (Auto) 0.0 Abs Immat Gran (auto) 0.03 Absolute Neuts (auto) 5.4 Absolute Nucleated RBC 0.000 Nucleated RBC % (auto) 0.0 Anion Gap 19 Estim Creat Clear Calc 81.3 Estimated GFR > 60 Random Glucose 69 Calcium 9.8 Magnesium 1.8 Total Bilirubin 3.4 H Direct Bilirubin 2.6 H AST 478 H ALT 181 H Alkaline Phosphatase 205 H Troponin I High Sens B-Natriuretic Peptide Total Protein 8.5 H Albumin 4.5 Lipase 75 Beta HCG, Quant < 2 Urine Color Urine Appearance Urine pH Ur Specific [place] Urine Protein Urine Glucose (UA) Urine Ketones Urine Blood Urine Nitrite Ur Leukocyte Esterase Urine RBC Urine WBC Ur Squamous Epith Cells Urine Bacteria Urine Trichomonas Ethyl Alcohol COVID-19 (LAURO) Negative COVID-19 Clin Com See Note 09/08/21 09/08/21 09/09/21 21:15 21:15 00:57 MCV MCH MCHC RDW Plt Count MPV Immature Gran % (Auto) Neut % (Auto) Lymph % (Auto) Ward % (Auto) Eos % (Auto) Baso % (Auto) Lymph # (Auto) [place] # (Auto) Eos # (Auto) Baso # (Auto) Abs Immat Gran (auto) Absolute Neuts (auto) Absolute Nucleated RBC Nucleated RBC % (auto) Anion Gap Estim Creat Clear Calc Estimated GFR Random Glucose Calcium Magnesium Total Bilirubin Direct Bilirubin AST ALT Alkaline Phosphatase Troponin I High Sens 8.5 D B-Natriuretic Peptide 42 Total Protein Albumin Lipase Beta HCG, Quant Urine Color DK YELLOW Urine Appearance CLOUDY Urine pH 6.0 Ur Specific Darby >= 1.030 H Urine Protein 1+ H Urine Glucose (UA) NEG Urine Ketones 40 Urine Blood 3+ H Urine Nitrite NEG Ur Leukocyte Esterase 2+ H Urine RBC 1-4 Urine WBC 30-49 H Ur Squamous Epith Cells 4+ Urine Bacteria 4+ Urine Trichomonas NOTED Ethyl Alcohol 28 COVID-19 (LAURO) COVID-19 Clin Com 09/09/21 09/09/21 09/09/21 06:28 06:28 06:28 MCV 95.4 MCH 31.9 MCHC 33.4 RDW 13.0 Plt Count 118 L MPV 9.8 Immature Gran % (Auto) 0.5 H Neut % (Auto) 69.4 Lymph % (Auto) 21.5 Ward % (Auto) 7.9 Eos % (Auto) 0.2 Baso % (Auto) 0.5 Lymph # (Auto) 1.3 Ward # (Auto) 0.5 Eos # (Auto) 0.0 Baso # (Auto) 0.0 Abs Immat Gran (auto) 0.03 Absolute Neuts (auto) 4.3 Absolute Nucleated RBC 0.000 Nucleated RBC % (auto) 0.0 Anion Gap 12 Estim Creat Clear Calc 84.7 Estimated GFR > 60 Random Glucose 79 Calcium 8.8 D Magnesium 1.8 Cancelled Total Bilirubin Direct Bilirubin AST ALT Alkaline Phosphatase Troponin I High Sens B-Natriuretic Peptide Total Protein Albumin Lipase Beta HCG, Quant Urine Color Urine Appearance Urine pH Ur Specific [place] Urine Protein Urine Glucose (UA) Urine Ketones Urine Blood Urine Nitrite Ur Leukocyte Esterase Urine RBC Urine WBC Ur Squamous Epith Cells Urine Bacteria Urine Trichomonas Ethyl Alcohol COVID-19 ([facility]O) COVID-19 Clin Com Assessment and Plan (1) Closed head injury: Status: Acute (2) Alcohol withdrawal: Status: Acute (3) Transaminitis: Status: Acute Assessment and Plan: ?40-year-old female with a past medical history of alcohol abuse, opiate abuse on methadone presented to the hospital with a chief complaint of nausea vomiting and abdominal discomfort for the past few days/fall.? Nausea/vomiting: Likely alcoholic gastritis, hepatitis Continue IV Pepcid. Abdominal ultrasound showed enlarged fatty liver, Lipase within normal limits Follow LFTs and clinical course Alcohol abuse/withdrawal:? Continue phenobarb protocol, thiamine folate and multivitamins. Magnesium 1.8, Care team consult Transaminitis:? Likely in setting of alcohol abuse, Monitor liver enzymes, abdominal ultrasound showed fatty liver. UTI: positive UA, on IV ceftriaxone. Urine culture pending, no evidence of sepsis History of substance abuse continue methadone Normocytic anemia hematocrit 35.6 dropped from 41 question dilutional, no active bleeding noted follow CBC Mechanical fall, CT head unremarkable, likely unsteady gait due to alcohol , obtain PT eval, continue close neurological followup DVT ppx: SCD Full code Quality Stroke Does the patient have a stroke diagnosis?: No VTE Prior VTE?: No VTE Risk Level:: Medical - low VTE Device Contraindication: N/A - Device Ordered VTE Drug Contraindication: Treatment Not Indicated
--- NOTE | 2021-09-09 11:19 | PC.NURSE ---
per JULIO Pedro, Methadone dose 90mg - [facility] to send over verification to pharmacy - awaiting order in MAR
[2021-09-09] MEDS: methADONE HCl 20 MG/2 ML ORAL.CONC 90 MG PO (11:32)
--- NOTE | 2021-09-09 13:36 | MHC.CM.PN ---
Addendum entered by Nancy Charles RN 09/09/21 13:51: PT RECEIVED PFIZER VACCINE 11/26/20 AND 12/20/20 Original Note: EMR REVIEWED, PT ADMITTED W/ETOH WITHDRAWAL, CM MET W/PT WHO IS A&OX4, PT REPORTS SHE IS INDEPENDENT W/ALL CARE, NO DME AND NO HOME SERVICES, PT REPORTS SHE HAS MET W/SOMEONE FROM RECOVERY SUPPORT TEAM AND PT DECLINES SERVICES AT THIS TIME AND REPORTS SHE WILL GO BACK TO MEETINGS AND WAS SOBER FOR 8YRS PRIOR TO RELAPSING, PT VERIFIES PCP VINAY YOUNG, REPORTS SHE IS FULLY VACCINATED W/PFIZER VACCINE AND WILL HAVE TEXT HER VACCINE CARD FOR DATES, PT WOULD ALSO LIKE TO COMPLETE A HCP AND NAMES HER MOTHER VASQUEZ CARTY [phone] HER HEALTH CARE AGENT AND HER FIANCE EFRAIN DELEON [phone] HER ALTERNATE. PT PROVIDED W/EDUCATIONAL INFO, ORIGINAL AND 2 COPIES, COPY UPLOADED TO [employer] AND PLACED IN CHART. D/C PLAN: HOME NO SERVICES W/FAMILY FOR TRANSPORT.
--- NOTE | 2021-09-09 13:50 | MHC.RECOVSUP ---
Recovery Support note: Patient is a 40 year old Haitian speaking female who presented to [facility] due to a fall and symptoms of alcohol withdrawal. This technical report writer met with patient to discuss alcohol use and recovery supports. Patient reports drinking 20 nips of 100 proof vodka daily. Patient reports she was sober for 8 years however relapsed after the loss of 3 of her brothers over the course of the pandemic. Patient reports she drinks to numb herself and that she would like to get referred to a therapist. This technical report writer will refer patient to [facility]. Patient reports her fiance has been sober for over 20 years an is very supportive. Patient reports AA meetings have been helpful in the past and she is interested in resources on where meetings are currently going on. Discussed recovery coaching with patient. Patient agreeable to meeting with a swim coach later today. Discussed medications for alcohol use disorder with patient. Patient expressed interest in naltrexone however reports she is currently in the process of tapering off methadone. Discussed [facility] and encouraged patient to consider starting naltrexone when she is finished tapering off of methadone. Patient acknowledged and reports no questions at this time.
[2021-09-09 13:58] VITALS: BP 150/76; PULSE 79; RESP 14; O2SAT 97
--- NOTE | 2021-09-09 17:12 | MHC.RECOVSUP ---
? Reason for consult Recovery Support o Current location: [facility] #8 o Identified substance use concern: Alcohol <del>-</del> <del>Overdose</del> <del>-</del> <del>Withdrawal</del> <del>-</del> <del>Seeking</del> <del>ATS</del> <del>(detox)</del> - Support ? Intervention: <del>o</del> <del>ATS</del> <del>bed</del> <del>search</del> <del>started/completed/in</del> <del>process</del> <del>o</del> <del>MAT</del> <del>started</del> <del>or</del> <del>to</del> <del>be</del> <del>started</del> o Community resources provided <del>o</del> <del>Harm</del> <del>reduction</del> <del>discussion</del> ? Plan: <del>o</del> <del>Referral</del> <del>to</del> <del>[facility]</del> <del>o</del> <del>Bed</del> <del>search</del> <del>in</del> <del>progress</del> <del>to</del> <del>o</del> <del>Follow</del> <del>up</del> <del>tomorrow</del> <del>o</del> <del>Patient</del> <del>awaiting</del> <del>crisis</del> <del>evaluation</del> <del>o</del> <del>Patient</del> <del>to</del> <del>follow</del> <del>up</del> <del>with</del> <del>[facility]</del> <del>after</del> <del>discharge</del> ? Additional information: Patient Was not into an interview and ask if it could be done tomorrow.
[2021-09-09 20:00] VITALS: BP 162/94; PULSE 96; RESP 20; TEMP 36.7; O2SAT 97
[2021-09-09] MEDS: Melatonin 3 MG TABLET 6 MG PO (20:10)
--- NOTE | 2021-09-09 20:30 | PC.NURSE ---
Assumed care of pt AxO x4, clear and compelete sentences Ambulatory Pt medicated per MAR Pt tolerated well Will continue to monitor
[2021-09-09 21:52] VITALS: BP 164/94; PULSE 86; RESP 20; TEMP 37.2; O2SAT 97
[2021-09-10] MEDS: diphenhydrAMINE HCL 25 MG TABLET PO (02:12)
[2021-09-10 04:11] VITALS: RESP 16
[2021-09-10 08:24] LABS: PLT CLUMP 1; Red Cell Distribution Width 12.6 % (11.0-16.0)
[2021-09-10 08:26] LABS: Hematocrit 36.5 % (37.0-47.0); Hemoglobin 12.2 g/dl (12.0-16.0); Mean Corpuscular HGB Conc 33.4 g/dl (31.0-35.0); Mean Corpuscular Hemoglobin 31.8 pg (27.0-33.0); Mean Corpuscular Volume 95.1 fL (80.0-98.0); Mean Platelet Volume 10.5 fL (9.4-12.3); Red Blood Count 3.84 X10*6/uL (4.20-5.50)
[2021-09-10 08:39] LABS: Alanine Aminotransferase 120 U/L (0-31); Albumin Level 3.5 g/dL (3.5-5.0); Alkaline Phosphatase 152 U/L (39-117); Aspartate Amino Transferase 230 U/L (5-31); Bilirubin Direct 2.3 mg/dL (0.0-0.5); Bilirubin Total 3.1 mg/dL (0.0-1.0)
[2021-09-10 08:45] LABS: Platelet Count 93 X10*3/uL (160-400); White Blood Count 5.4 X10*3/uL (4.8-10.8)
[2021-09-10 08:57] VITALS: BP 166/97; PULSE 114; RESP 18; TEMP 36.2; O2SAT 98
[2021-09-10 09:13] LABS: Total Protein 6.8 g/dL (6.5-8.0)
[2021-09-10] MEDS: methADONE HCl 20 MG/2 ML ORAL.CONC 90 MG PO (10:06)
[2021-09-10] MEDS: Multivitamin TABLET 1 TAB PO (10:07)
[2021-09-10] MEDS: Famotidine/PF 20 MG/2 ML VIAL IVPUSH (10:07)
[2021-09-10] MEDS: PHENobarbitaL 15 MG TABLET 45 MG PO (10:07)
[2021-09-10] MEDS: Folic Acid 1 MG TABLET PO (10:08)
--- NOTE | 2021-09-10 10:57 | PC.NURSE ---
Pt A&Ox3, no complaints of pain, would just like her methadone. Anxious and shaky, medicated as per MAR orders, including methadone. LFT's reviewed with patient. LCA, skin intact, bruising noted to RAC iv placement but flushed well. Will continue to monitor.
[2021-09-10] MEDS: Thiamine HCL 100 MG TABLET PO (11:24)
--- NOTE | 2021-09-10 12:28 | HO.PM.IMPN ---
Subjective Subjective Date of Service: 09/10/21 Interval History: Remains anxious shaky, nervous, denies nausea vomiting, tolerating diet, tele monitor showed mild tachycardia and elevated blood pressure, patient denies chest pain, no palpitations, no fevers, no chills. Review of Systems Review of Systems: Yes all other systems are reviewed and are negative Physical Exam Vital Signs: Vital Signs: Last Vital Signs Temp 97.1 F 09/10/21 08:57 Pulse 114 H 09/10/21 08:57 Resp 18 09/10/21 08:57 BP 166/97 H 09/10/21 08:57 Pulse Ox 98 09/10/21 08:57 BMI result Body Mass Index 28.1 General awake alert anxious,no acute distress.? Neck supple no JVD. CVS? regular rate rhythm, Respiratory lungs clear to auscultation, no respiratory distress, no wheeze, no rhonchi. Gastrointestinal abdomen soft, nontender, bowel sounds audible, Extremities no edema. Neuro anxious, speech clear Skin no rash Back no CVA tenderness Objective Data Active Medications Famotidine (Famotidine/Pf 20 Mg/2 Ml Vial) 20 mg IVPUSH BID [facility] Last Admin: 09/10/21 10:07 Dose: 20 mg Documented by: ALIE Folic Acid (Folic Acid 1 Mg Tablet) 1 mg PO DAILY [facility] Stop: 09/12/21 08:59 Last Admin: 09/10/21 10:08 Dose: 1 mg Documented by: ALIE Dextrose/Sodium Chloride (D51/2ns) 1,000 mls @ 50 mls/hr IVCONT .Q20H [facility] Last Admin: 09/09/21 23:04 Dose: 50 mls/hr Documented by: MAG Ceftriaxone Sodium 1 gm/ (Sodium Chloride) 50 mls @ 100 mls/hr IV Q24H [facility] Last Infusion: 09/09/21 23:57 Dose: 0 mls/hr Documented by: MAG Medication (No Benzodiazepines) 1 each MISCELLANE DAILY [facility] Melatonin (Melatonin 3 Mg Tablet) 6 mg PO BEDTIME PRN PRN Reason: Insomnia Last Admin: 09/09/21 20:10 Dose: 6 mg Documented by: Methadone HCl (Methadone Hcl 20 Mg/2 Ml Oral.Conc) 90 mg PO DAILY [facility] Last Admin: 09/10/21 10:06 Dose: 90 mg Documented by: ALIE Multivitamins/Vitamin C (Multivitamin Tablet) 1 tab PO DAILY [facility] Stop: 09/12/21 08:59 Last Admin: 09/10/21 10:07 Dose: 1 tab Documented by: ALIE Phenobarbital (Phenobarbital 15 Mg Tablet) 45 mg PO BID [facility]; Protocol Stop: 09/10/21 21:01 Last Admin: 09/10/21 10:07 Dose: 45 mg Documented by: ALIE Phenobarbital (Phenobarbital 30 Mg Tablet) 30 mg PO BID [facility]; Protocol Stop: 09/12/21 21:01 Phenobarbital (Phenobarbital 15 Mg Tablet) 15 mg PO DAILY [facility]; Protocol Stop: 09/14/21 09:01 Senna (Sennosides 8.6 Mg Tablet) 17.2 mg PO BEDTIME PRN PRN Reason: Constipation Sodium Chloride (0.9 % Sodium Chloride Flush 3 Ml Syringe) 3 ml IVFLUSH QSHIFT [facility] Last Admin: 09/10/21 11:24 Dose: Not Given Documented by: ALIE Non-Admin Reason: IV Running Thiamine HCl (Thiamine Hcl 100 Mg Tablet) 100 mg PO DAILY [facility] Stop: 09/12/21 08:59 Last Admin: 09/10/21 11:24 Dose: 100 mg Documented by: ALIE Labs CBC & Chem 7: 09/10/21 08:14 09/09/21 06:28 Labs: Laboratory Results - last 24 hr 09/10/21 09/10/21 08:14 08:14 MCV 95.1 MCH 31.8 MCHC 33.4 RDW 12.6 Plt Count 93 L MPV 10.5 Absolute Nucleated RBC 0.000 Nucleated RBC % (auto) 0.0 Total Bilirubin 3.1 H Direct Bilirubin 2.3 H AST 230 H ALT 120 H Alkaline Phosphatase 152 H D Total Protein 6.8 Albumin 3.5 D Microbiology Microbiology Results: Microbiology 09/09/21 Unknown Urine Culture - Preliminary Urine clean catch - Urine dick top Gram negative jermaine Assessment and Plan (1) Alcohol withdrawal: Status: Acute (2) Transaminitis: Status: Acute (3) Closed head injury: Status: Acute (4) UTI (urinary tract infection): Status: Acute Assessment and Plan: 40-year-old female with a past medical history of alcohol abuse, opiate abuse on methadone presented to the hospital with a chief complaint of nausea vomiting and abdominal discomfort for the past few days/fall.? Nausea/vomiting: resolved tolerating diet Likely due to alcoholic gastritis, hepatitis Change IV Pepcid to by mouth Abdominal ultrasound showed enlarged fatty liver, Lipase within normal limits, LFTs trending down Alcohol abuse/withdrawal: Feeling anxious with mild tremor, Continue phenobarb protocol, thiamine folate and multivitamins.? Magnesium 1.8, Care team consult Transaminitis:? Likely in setting of alcohol abuse, LFTs trending down, abdominal ultrasound showed fatty liver. Follow hepatitis panel, and liver panel. UTI: positive UA, on IV ceftriaxone day 2, Urine culture positive for gram-negative rods , follow final cultures no evidence of sepsis History of substance abuse continue methadone Normocytic anemia hematocrit 36.5 dropped from 41 question dilutional, no active bleeding noted. Mechanical fall, CT head unremarkable, likely unsteady gait due to alcohol , obtain PT eval once withdrawal symptoms improves, continue close neurological followup DVT ppx: SCD Full code Quality Stroke Does the patient have a stroke diagnosis?: No VTE Prior VTE?: No VTE Risk Level:: Medical - low VTE Device Contraindication: N/A - Device Ordered VTE Drug Contraindication: Treatment Not Indicated
--- NOTE | 2021-09-10 15:51 | PC.NURSE ---
During routine rounds, pt noted to no longer be in bed. Primary nurse Gogo and Charge Nurse Anirudh and [facility] Security made aware. Pt's neighborhood police ([place] [employer]) called for wellness check, and police notified that pt does have [address] Call back number given.
--- NOTE | 2021-09-10 17:22 | PC.NURSE ---
Pt eloped during while this RN was on lunch break, covering RN notified myself, security, gas charger as well as local police dept ([place]).
--- NOTE | 2021-09-11 01:32 | PC.NURSE ---
Received call from [facility] stating pt did not have Iv in place.
[2021-09-11 07:56] LABS: HBc Num1 0.16 S/CO (0.00-0.79); HBsAGNum1 0.19 S/CO (0.00-0.99); Hepatitis B Core Antibody Nonreactive (Nonreactive); Hepatitis B Surface Antigen Negative (Negative); ~Hepatitis C Antibody Reactive (Nonreactive)
[2021-09-11 08:36] LABS: ~Hepatitis B Surface Antibody REACTIVE (Nonreactive)
[2021-09-12 07:43] LABS: Hepatitis A Antibody IgM 0.28 Index (0-0.79); ~Hepatitis A Antibody IgM Nonreactive (Nonreactive)
== END 2021-09-10 15:50 | disposition left against medical advice (07) | DRG 463 ==
LOC: HO.ED 09-09 00:17 → HO.EDOVER 09-09 01:01
PROVIDERS: Admitting Provider Hospitalist; Emergency Provider Emergency Medicine; PCP Internal Medicine; Visit Provider Hospitalist
DX: N39.0 Urinary tract infection, site not specified (principal); S09.90XA Unspecified injury of head, initial encounter; D64.9 Anemia, unspecified; F10.139 Alcohol abuse with withdrawal, unspecified; F11.20 Opioid dependence, uncomplicated; F17.210 Nicotine dependence, cigarettes, uncomplicated; Z71.6 Tobacco abuse counseling; W01.190A Fall on same level from slipping, tripping and stumbling with subsequent striking against furniture, initial encounter; Y93.9 Activity, unspecified; Y92.000 Kitchen of unspecified non-institutional (private) residence as the place of occurrence of the external cause; Z20.822 Contact with and (suspected) exposure to COVID-19; Y90.1 Blood alcohol level of 20-39 mg/100 ml
CPT/HCPCS: 36415; 70450; 71045; 76705; 80048; 80076; 81001; 82077; 83690; 83735; 83880; 84484; 84702; 85025; 85027; 86704; 86706; 86709; 86803; 87086; 87088; 87186; 87340; 87635; 93005; 99285; J0696; J2060; J2405; J2560; Q0163

== ENCOUNTER 2023-03-15 21:28 | Emergency (ER) | payer MEDICAID, SELFPAY ==
[2023-03-15 21:31] VITALS: BP 140/79; PULSE 80; RESP 18; TEMP 36.6; O2SAT 97; BMI 32.2
--- NOTE | 2023-03-16 00:27 | ED.GENADULT ---
HPI - General Adult General Chief complaint: Fall Stated complaint: Fall/?Lac Time Seen by Provider: 03/15/23 23:21 Source: patient, family, RN notes reviewed and old records reviewed Mode of arrival: ambulatory Limitations: no limitations History of Present Illness HPI narrative: 42-year-old female presents for evaluation of a laceration above her left eyebrow. Patient reports that she tripped over her 's work boots She struck the left side of her head against a dresser She sustained a laceration above the left eyebrow Denies losing consciousness She reports that she was initially dizzy and ?seeing stars. ? She denies any symptoms now. Denies any blurry vision, nausea vomiting or dizziness She is not on any anticoagulation Related Data Home Medications Medication Instructions Recorded Confirmed methadone 10 mg/mL oral concentrate 90 mg PO DAILY 09/09/21 09/09/21 Allergies Allergy/AdvReac Type Severity Reaction Status Date / Time No Known Allergies Allergy Unverified 05/18/20 14:59 Review of Systems Constitutional: Constitutional: Reports as per HPI, Denies chills, Denies fever(s) and Reports headache(s) ENT: Reports headache(s) Cardiovascular: Cardiovascular: Denies chest pain and Denies dyspnea Respiratory: Respiratory: Denies cough and Denies dyspnea Genitourinary: Genitourinary: Denies dysuria Neurologic: Reports headache(s) and Denies focal weakness PMFSH Social History Social History Alcohol intake: current Alcohol intake frequency: 3 or more drinks per day Alcohol type: hard liquor Patient Tobacco Use Status: Current everyday Tobacco user Advance Directives: Yes Advance Directives on File: Yes Advance Directives Date on File: 09/09/21 service: No Current occupational status: unemployed Physical Exam ED Vital Signs: Vital Signs - 24 hr 03/15/23 21:31 Temperature 97.9 F Pulse Rate 80 Respiratory Rate 18 Blood Pressure 140/79 H Pulse Oximetry 97 Oxygen Delivery Method Room Air BMI result Body Mass Index 32.2 Const General: healthy appearing, comfortable, no acute distress, alert and awake Nutritional Appearance: well nourished Orientation/consciousness: patient oriented x3 HENMT Throat: Yes posterior oropharynx normal Eyes Eyelids: Yes eyelids normal Conjunctivae: conjunctivae normal Sclerae: sclerae normal Corneas: corneas normal Pupils: Equal, round and reactive pupils present EOM: EOMs intact bilaterally Neck Neck: Yes full ROM Resp Effort & Inspection: normal respiratory effort, able to speak in complete sentences and not labored Skin Other: Patient has an approximately 4 cm semilunar laceration, full thickness to the superior aspect the left eyebrow General skin exam: no rashes or lesions noted and elasticity normal Neuro General: patient oriented x3 Cranial nerves: Yes CN's II-XII intact bilaterally, Yes Equal, round and reactive pupils present and Yes Bilaterally intact EOM present Cognition (Neuro): normal cognition Extrem Other: Moving all extremities well without any obvious deformities Procedures Laceration Laceration 1: Site: face Side (If applicable): left (Eyebrow) Size (cm): 4 Description: linear and clean Depth: simple, single layer Local Anesthetic: lidocaine 1% and with epi Amount of anesthesia used (mL): 3 Skin layer closed with: other (Prolene) Size (cm): 6-0 Number of sutures: 7 Technique: simple, interrupted Medical Decision Making Medical Decision Making MDM Narrative: 42-year-old female presents for evaluation after a laceration. She still on struck her head against a dresser. There was no loss of consciousness. Neuro is are intact. Discussed CT scan of brain with the patient but she declines and feel this is appropriate. See procedure note for wound repair. Wound was sutured by PA studentMadhavi under my direct supervision. Differential Diagnosis Mechanical fall Laceration Contusion Skin tear Tests considered The following testing was considered but not selected: CT scan of the brain Discharge Plan Discharge Clinical Impression: Facial laceration Patient Disposition: Home, Self-Care Instructions: Laceration (ED) Additional Instructions: You had 7 sutures placed today. These can be removed in 5-7 days Keep the area clean and dry Your tetanus was updated today May use ibuprofen or Tylenol for pain Return for new or worsening symptoms Prescriptions: No Action methadone 10 mg/mL Concentrate 90 mg PO DAILY Stand Alone Forms: Work/School Release
[2023-03-16] MEDS: Diphth,Pertus(ACell),Tet Adult 0.5 ML SYRINGE IM (00:50)
[2023-03-16] MEDS: Lidocaine HCl 1%/Epi 1:100,000 10 ML VIAL INFILTRATI (00:50)
[2023-03-16 00:55] VITALS: BP 132/84; PULSE 68; RESP 18; O2SAT 99
== END 2023-03-16 00:55 | disposition home or self-care (01) ==
PROVIDERS: Emergency Provider Emergency Medicine; PCP Internal Medicine
DX: S01.112A Laceration without foreign body of left eyelid and periocular area, initial encounter (principal); W01.0XXA Fall on same level from slipping, tripping and stumbling without subsequent striking against object, initial encounter; F17.200 Nicotine dependence, unspecified, uncomplicated; Y93.89 Activity, other specified; Y92.013 Bedroom of single-family (private) house as the place of occurrence of the external cause; Y99.9 Unspecified external cause status
CPT/HCPCS: 90471; 90715; 99283; 99284